=== PATIENT | female | born 1945 | race Caucasian/White ===

== ENCOUNTER 2016-10-05 21:52 | Emergency (ER) | payer MEDICARE, BC ==
[2016-10-05 22:15] VITALS: O2SAT 94
--- NOTE | 2016-10-05 23:00 | CT ---
EXAM: Head (accession [id number]), Orbits (accession [id number]) CLINICAL INDICATION: 70-year-old female with kick to face by horse. COMPARISON: None. TECHNIQUE: CT brain without contrast. FINDINGS: Brain: The ventricles, sulci, and cisterns are symmetric and unremarkable. The oneill-white matter differentiation is preserved. There is no mass effect, midline shift, intra- or extra-axial fluid collection/acute hemorrhage. Maxillofacial: Patchy opacification of a few bilateral ethmoid air cells otherwise the frontal sinuses, frontal-ethmoid recesses, anterior/posterior ethmoids, sphenoid sinuses, and maxillary sinuses are well developed and clear. The osteomeatal complexes are patent. The nasal turbinates and nasal septum are normal. The cribriform plate and lamina papyraceae within normal limits. Nondisplaced left-sided nasal bone fracture. The orbits are unremarkable. The optic nerves and globes appear intact. LEFT maxillary and periorbital soft tissue swelling. Small volume subcentimeter hematoma anterior to the LEFT maxilla. IMPRESSION: 1. LEFT maxillary and periorbital mild soft tissue swelling with small focal anterior maxillary soft tissue hematoma. 2. Nondisplaced left-sided nasal bone fracture.3. No acute intracranial abnormalities. Electronically signed by: Becka Shirley MD 10/05/2016 10:59 PM DUTY OFFICER
--- NOTE | 2016-10-05 23:08 | ED.PDOC ---
History of Present Illness - General Chief Complaint: Head Injury Stated Complaint: kicked in face by horse Time Seen by Provider: 10/05/16 22:17 Source: patient Exam Limitations: no limitations - History of Present Illness Initial Comments: the patient is a 70-year-old female that was kicked in the face by a horse in a glancing blow hour prior to arrival. She has swelling to the left side of her face primarily over the maxillary prominence. She also has a very mild abrasion over the tip of her nasal bridge. Extraocular movements are intact. She did not lose consciousness. No other areas of injury. Vision is preserved. She is not taking blood thinners. Timing/Duration: momentarily Severity: mild Improving Factors: nothing Worsening Factors: nothing Associated Symptoms: denies symptoms Allergies/Adverse Reactions: Allergies Amoxicillin [From Augmentin] Allergy (Verified 10/05/16 22:15) Clavulanic Acid [From Augmentin] Allergy (Verified 10/05/16 22:15) Penicillins Allergy (Verified 10/05/16 22:15) Home Medications: Ambulatory Orders Yvkzhdykobilv-Bosx-Wuxuxxmtmv [Fioricet] 1 ea PO Q8H PRN #21 tab 10/05/16 Levothyroxine Sodium [Synthroid] 75 mcg PO DAILY 10/05/16 Lisinopril 20 mg PO DAILY 10/05/16 Review of Systems - Review of Systems Constitutional: States: no symptoms reported EENTM: States: nose pain Respiratory: States: no symptoms reported Cardiology: States: no symptoms reported Gastrointestinal/Abdominal: States: no symptoms reported Genitourinary: States: no symptoms reported Musculoskeletal: States: no symptoms reported Skin: States: see HPI Neurological: States: no symptoms reported All other Systems: No Change from Baseline Past Medical History (General) - Patient Medical History Hx Hypertension: Yes Hx Thyroid Disease: Yes Surgical History: other - Vaccination History Hx Tetanus, Diphtheria Vaccination: No Hx Influenza Vaccination: Yes Hx Pneumococcal Vaccination: Yes - Social History Hx Tobacco Use: No Hx Alcohol Use: No Hx Substance Use Treatment: No Family Medical History - Family History Mother Hx Family Diabetes: Yes Physical Exam - Physical Exam General Appearance: Alert, Comfortable, No apparent distress, Other - the patient has some swelling over the left maxillary prominence that extends up to side of the nose on the left. Palate appears intact. There does appear to be dry blood in the left nares. Difficult to tell if there is any asymmetry in the nasal bridge. Extraocular movements are intact. Visual soto appear preserved. Eye Exam: bilateral normal Ears, Nose, Throat: normal pharynx, other - hearing is decreased in association with recent surgeries. Neck: non-tender, full range of motion, supple Respiratory: chest non-tender, lungs clear, normal breath sounds, no respiratory distress, no accessory muscle use Cardiovascular/Chest: normal peripheral pulses, regular rate, rhythm, no edema Peripheral Pulses: radial,right: 2+, radial,left: 2+, dorsalis pedis,right: 2+, dorsalis pedis,left: 2+ Gastrointestinal/Abdominal: non tender, soft Rectal Exam: deferred Back Exam: normal inspection Extremity: normal range of motion, non-tender, normal inspection, no pedal edema , normal capillary refill Neurologic: alert, normal mood/affect, oriented x 3 Skin Exam: normal color - with the exception of the bruising Comments: Vital Signs - 24 hr 10/05/16 10/05/16 22:04 22:56 Temperature 98.6 F Pulse Rate [ 86 74 left] Respiratory 18 18 Rate Blood Pressure 138/76 199/68 [left] O2 Sat by Pulse 94 L 94 L Oximetry Progress - Progress Progress: 10/05/16 23:08 the patient is a 70-year-old female who was kicked in the face by a horse. She appears to have sustained a nondisplaced left sided nasal bone fracture. The rest appears to be soft tissue swelling only. CT scan of the head and orbits show only this as the result of the injury.. Motrin and Tylenol can be used for pain. Fioricet was written for as needed use. She needs to follow up with her primary care doctor in 2 weeks for reevaluation of her nose. ER warnings were given for any acute worsening. - EKG/XRAY/CT CT Ordered: Yes Departure - Departure Clinical Impression: Nasal bone fracture Qualifiers: Encounter type: initial encounter Fracture type: closed Qualifier Code: ( S02.2XXA) Fracture of nasal bones, initial encounter for closed fracture Disposition: Discharge to Home or Self Care Condition: Fair Departure Forms: ED Discharge - Pt. Copy, Patient Portal Self Enrollment Instructions: DI for Nose Fracture Diet: regular diet Activity: increase activity as tolerated Referrals: Jericho Todd MD [Primary Care Provider] - 1-2 Weeks Prescriptions: Csuhqlebfwerf-Wgim-Lfwvadxzuq [Fioricet] 1 ea PO Q8H PRN #21 tab PRN Reason: Pain Home Medications: Ambulatory Orders Dwclnqlazbnzs-Zcnx-Dkvnlhyosl [Fioricet] 1 ea PO Q8H PRN #21 tab 10/05/16 Levothyroxine Sodium [Synthroid] 75 mcg PO DAILY 10/05/16 Lisinopril 20 mg PO DAILY 10/05/16 Additional Instructions: the patient is a 70-year-old female who was kicked in the face by a horse. She appears to have sustained a nondisplaced left sided nasal bone fracture. The rest appears to be soft tissue swelling only. CT scan of the head and orbits show only this as the result of the injury.. Motrin and Tylenol can be used for pain. Fioricet was written for as needed use. She needs to follow up with her primary care doctor in 2 weeks for reevaluation of her nose. ER warnings were given for any acute worsening.
[2016-10-05] MEDS: ACETAMINOPHEN-CAFF-BUTALBITAL 1 EA TAB PO SCH (23:15)
[2016-10-05] MEDS: SULFA/TRIMETH 800/160 (DS) TAB 1 EA TAB PO ONE (23:15)
[2016-10-05 23:32] VITALS: BP 120/75; TEMP 97.9
--- NOTE | 2016-10-31 23:49 | CT ---
EXAM: Head (accession [id number]), Orbits (accession [id number]) CLINICAL INDICATION: 70-year-old female with kick to face by horse. COMPARISON: None. TECHNIQUE: CT brain without contrast. FINDINGS: Brain: The ventricles, sulci, and cisterns are symmetric and unremarkable. The oneill-white matter differentiation is preserved. There is no mass effect, midline shift, intra- or extra-axial fluid collection/acute hemorrhage. Maxillofacial: Patchy opacification of a few bilateral ethmoid air cells otherwise the frontal sinuses, frontal-ethmoid recesses, anterior/posterior ethmoids, sphenoid sinuses, and maxillary sinuses are well developed and clear. The osteomeatal complexes are patent. The nasal turbinates and nasal septum are normal. The cribriform plate and lamina papyraceae within normal limits. Nondisplaced left-sided nasal bone fracture. The orbits are unremarkable. The optic nerves and globes appear intact. LEFT maxillary and periorbital soft tissue swelling. Small volume subcentimeter hematoma anterior to the LEFT maxilla. IMPRESSION: 1. LEFT maxillary and periorbital mild soft tissue swelling with small focal anterior maxillary soft tissue hematoma. 2. Nondisplaced left-sided nasal bone fracture.3. No acute intracranial abnormalities. Electronically signed by: Becka Shirley MD 10/05/2016 10:59 PM ENGLISH HORN PLAYER
--- NOTE | 2016-10-31 23:49 | CT ---
EXAM: Head (accession [id number]), Orbits (accession [id number]) CLINICAL INDICATION: 70-year-old female with kick to face by horse. COMPARISON: None. TECHNIQUE: CT brain without contrast. FINDINGS: Brain: The ventricles, sulci, and cisterns are symmetric and unremarkable. The oneill-white matter differentiation is preserved. There is no mass effect, midline shift, intra- or extra-axial fluid collection/acute hemorrhage. Maxillofacial: Patchy opacification of a few bilateral ethmoid air cells otherwise the frontal sinuses, frontal-ethmoid recesses, anterior/posterior ethmoids, sphenoid sinuses, and maxillary sinuses are well developed and clear. The osteomeatal complexes are patent. The nasal turbinates and nasal septum are normal. The cribriform plate and lamina papyraceae within normal limits. Nondisplaced left-sided nasal bone fracture. The orbits are unremarkable. The optic nerves and globes appear intact. LEFT maxillary and periorbital soft tissue swelling. Small volume subcentimeter hematoma anterior to the LEFT maxilla. IMPRESSION: 1. LEFT maxillary and periorbital mild soft tissue swelling with small focal anterior maxillary soft tissue hematoma. 2. Nondisplaced left-sided nasal bone fracture.3. No acute intracranial abnormalities. Electronically signed by: Becka Shirley MD 10/05/2016 10:59 PM CELLOPHANE WORKER
--- NOTE | 2016-11-01 06:33 | CT ---
EXAM: Head (accession [id number]), Orbits (accession [id number]) CLINICAL INDICATION: 70-year-old female with kick to face by horse. COMPARISON: None. TECHNIQUE: CT brain without contrast. FINDINGS: Brain: The ventricles, sulci, and cisterns are symmetric and unremarkable. The oneill-white matter differentiation is preserved. There is no mass effect, midline shift, intra- or extra-axial fluid collection/acute hemorrhage. Maxillofacial: Patchy opacification of a few bilateral ethmoid air cells otherwise the frontal sinuses, frontal-ethmoid recesses, anterior/posterior ethmoids, sphenoid sinuses, and maxillary sinuses are well developed and clear. The osteomeatal complexes are patent. The nasal turbinates and nasal septum are normal. The cribriform plate and lamina papyraceae within normal limits. Nondisplaced left-sided nasal bone fracture. The orbits are unremarkable. The optic nerves and globes appear intact. LEFT maxillary and periorbital soft tissue swelling. Small volume subcentimeter hematoma anterior to the LEFT maxilla. IMPRESSION: 1. LEFT maxillary and periorbital mild soft tissue swelling with small focal anterior maxillary soft tissue hematoma. 2. Nondisplaced left-sided nasal bone fracture.3. No acute intracranial abnormalities. Electronically signed by: Becka Shirley MD 10/05/2016 10:59 PM LICENSED REACTOR OPERATOR
--- NOTE | 2016-11-01 06:33 | CT ---
EXAM: Head (accession [id number]), Orbits (accession [id number]) CLINICAL INDICATION: 70-year-old female with kick to face by horse. COMPARISON: None. TECHNIQUE: CT brain without contrast. FINDINGS: Brain: The ventricles, sulci, and cisterns are symmetric and unremarkable. The oneill-white matter differentiation is preserved. There is no mass effect, midline shift, intra- or extra-axial fluid collection/acute hemorrhage. Maxillofacial: Patchy opacification of a few bilateral ethmoid air cells otherwise the frontal sinuses, frontal-ethmoid recesses, anterior/posterior ethmoids, sphenoid sinuses, and maxillary sinuses are well developed and clear. The osteomeatal complexes are patent. The nasal turbinates and nasal septum are normal. The cribriform plate and lamina papyraceae within normal limits. Nondisplaced left-sided nasal bone fracture. The orbits are unremarkable. The optic nerves and globes appear intact. LEFT maxillary and periorbital soft tissue swelling. Small volume subcentimeter hematoma anterior to the LEFT maxilla. IMPRESSION: 1. LEFT maxillary and periorbital mild soft tissue swelling with small focal anterior maxillary soft tissue hematoma. 2. Nondisplaced left-sided nasal bone fracture.3. No acute intracranial abnormalities. Electronically signed by: Becka Shirley MD 10/05/2016 10:59 PM HARVESTER OPERATOR
== END 2016-10-05 23:25 | disposition home or self-care (01) ==
LOC: ER 21:52
DX: S02.2XXA Fracture of nasal bones, initial encounter for closed fracture (principal); I10 Essential (primary) hypertension; E07.9 Disorder of thyroid, unspecified; Z88.3 Allergy status to other anti-infective agents; Z88.0 Allergy status to penicillin; Z79.899 Other long term (current) drug therapy; W55.12XA Struck by horse, initial encounter

== ENCOUNTER → 2017-09-20 | Outpatient (CLI) | payer MEDICARE | END | disposition home or self-care (01) | LOC: LAB.O 14:01 | PROVIDERS: ATTEND Family Medicine | DX: R19.7 Diarrhea, unspecified (principal) ==

== ENCOUNTER → 2017-10-01 | Outpatient (CLI) | payer MEDICARE | LOC: LAB.O 09:33 | PROVIDERS: ATTEND Family Medicine | DX: R19.7 Diarrhea, unspecified (principal) ==

== ENCOUNTER → 2018-06-27 | Outpatient (CLI) | payer MEDICARE ==
--- NOTE | 2018-06-28 15:19 | MAM ---
EXAM DESCRIPTION: 3D Screening BILATERAL : Digital Mammography. CLINICAL HISTORY: 72 years Female SCREEN . No complaints. No personal history of breast cancer. Remote family history of breast cancer.. Lifetime risk of developing breast cancer (Tyrer-Cuzick model)(%): 5.1. COMPARISON: 2-D digital screening bilateral study 08/11/2016.. TECHNIQUE: Bilateral CC and MLO projection full-field images, Digital tomosynthesis mammographic technique. Bilateral digital 2-D full-field MLO images. CAD not utilized. FINDINGS: The breast parenchymal density pattern is: Almost entirely fatty. No skin thickening or nipple retraction. Focal asymmetry at the 1230 clock position of the middle third right breast, is stable since the prior study. No new focal, stellate mass or density, focal asymmetry , and no suspicious microcalcifications bilaterally. Stable mammograms compared to prior study. Taking into account, differences in mammographic technique. IMPRESSION: Benign exam. BIRAD CATEGORY: 2 BENIGN FINDINGS. RECOMMENDATIONS: FOLLOW UP: Routine digital bilateral screening, one year interval from June 2018. Written communication explaining the IMPRESSION and follow-up, will be mailed to the patient and referring health care provider. According to the [employer], yearly mammograms are recommended starting at age 40 and continuing as long as a woman is in good health. Any breast change noted on a breast self-exam should be reported promptly to the patient's healthcare provider. Breast MRI is recommended for women with an approximately 20-25% or greater lifetime risk of breast cancer, including women with a strong family history of breast or ovarian cancer and women who have been treated for Hodgkin's disease. A negative mammographic report should not delay tissue diagnosis in patients with significant clinical history or physical findings. Extremely dense breast tissue limits the sensitivity of digital mammography. Electronically signed by: Tono Santana MD 06/28/2018 3:17 PM CDT
== END ==
LOC: MAMMO 10:24
PROVIDERS: ATTEND Family Medicine
DX: Z12.31 Encounter for screening mammogram for malignant neoplasm of breast (principal)

== ENCOUNTER → 2018-11-16 | Outpatient (CLI) | payer MEDICARE | LOC: GMAE 10:41 | PROVIDERS: ATTEND Family Medicine | DX: E03.9 Hypothyroidism, unspecified (principal) ==

== ENCOUNTER → 2019-01-17 | Outpatient (CLI) | payer MEDICARE | LOC: GMAE 12:29 | PROVIDERS: ATTEND Family Medicine | DX: R10.811 Right upper quadrant abdominal tenderness (principal); Z11.59 Encounter for screening for other viral diseases ==

== ENCOUNTER → 2019-07-10 | Outpatient (CLI) | payer MEDICARE ==
--- NOTE | 2019-07-12 11:08 | MAM ---
EXAM DESCRIPTION: 3D Screening BILATERAL : Digital Mammography. CLINICAL HISTORY: 73 years Female ANNUAL SCREENING . No complaints or personal history of breast cancer. Remote family history of breast cancer. Menarche age 16. Childbirth. Postmenopausal 10+ years. Currently on HRT. Lifetime risk of developing breast cancer (Tyrer-Cuzick model)(%): 4.9. COMPARISON: Bilateral digital screening breast tomosynthesis 27 June 2018. 2-D digital screening bilateral mammography 11 August 2016.. TECHNIQUE: Bilateral CC and MLO projection full-field images, digital tomosynthesis mammographic technique. Bilateral digital 2-D full-field MLO images. CAD not available for tomosynthesis or 2-D images. FINDINGS: The breast parenchymal density pattern is: Almost entirely fatty. No skin thickening or nipple retraction. Focal asymmetry in the mid right breast is stable. No new focal, stellate mass or density, focal asymmetry , and no suspicious microcalcifications bilaterally. Stable mammograms compared to prior study. IMPRESSION: Benign exam. BIRAD CATEGORY: 2 BENIGN FINDINGS. RECOMMENDATIONS: FOLLOW UP: Routine digital bilateral mammographic screening, one year interval from July 2019. Written communication explaining the IMPRESSION and follow-up, will be mailed to the patient and referring health care provider. According to the [employer], yearly mammograms are recommended starting at age 40 and continuing as long as a woman is in good health. Any breast change noted on a breast self-exam should be reported promptly to the patient's healthcare provider. Breast MRI is recommended for women with an approximately 20-25% or greater lifetime risk of breast cancer, including women with a strong family history of breast or ovarian cancer and women who have been treated for Hodgkin's disease. A negative mammographic report should not delay tissue diagnosis in patients with significant clinical history or physical findings. Extremely dense breast tissue limits the sensitivity of digital mammography. Electronically signed by: Tono Santana MD 07/12/2019 11:07 AM ASSOCIATE PASTOR
== END ==
LOC: MAMMO 10:30
PROVIDERS: ATTEND Family Medicine
DX: Z12.31 Encounter for screening mammogram for malignant neoplasm of breast (principal)

== ENCOUNTER → 2019-10-05 | Outpatient (CLI) | payer MEDICARE | LOC: GMAE 10:43 | PROVIDERS: ATTEND Family Medicine | DX: L65.8 Other specified nonscarring hair loss (principal) ==

== ENCOUNTER → 2019-12-31 | Outpatient (CLI) | payer MEDICARE | LOC: GMAE 11:36 | PROVIDERS: ATTEND Family Medicine | DX: E03.9 Hypothyroidism, unspecified (principal); I10 Essential (primary) hypertension; E78.2 Mixed hyperlipidemia ==